=== PATIENT | female | born 1955 | race Caucasian/White ===

== ENCOUNTER 2020-03-19 18:52 | Emergency (ER) | payer MEDICARE, MEDICAID ==
[2020-03-19] MEDS ORDERED: Acetaminophen 500 MG Tab PO ONE (20:07)
--- NOTE | 2020-03-19 20:29 | EDM.PDOC ---
ED HPI GENERAL MEDICAL PROBLEM - General Chief Complaint: General Stated Complaint: COUG,CONGESTIVE,SOB Time Seen by Provider: 03/19/20 20:25 Source of Information: Reports: Patient History Limitations: Reports: No Limitations - History of Present Illness INITIAL COMMENTS - FREE TEXT/NARRATIVE: Laurel complains of COVID-like symptoms. They have been present for 1 week. They include high grade fever,body aches,cough and fatigue,. She has no SOB. She reports Borderline DM. Her daughter has similar symptoms bodyaching Pain Score (Numeric/FACES): 7 - Related Data Allergies Allergy/AdvReac Type Severity Reaction Status Date / Time ciprofloxacin [From Cipro] Allergy Nausea Verified 03/19/20 20:08 codeine Allergy Hives Verified 03/19/20 20:08 Sulfa (Sulfonamide Allergy Hives Verified 03/19/20 20:08 Antibiotics) Home Meds: Home Meds Amoxicillin/Potassium Clav [Augmentin 875-125 Tablet] 875 mg PO BID 01/21/16 [History] Gabapentin [Neurontin] 300 mg PO BEDTIME 01/21/16 [History] Mupirocin Oint [Bactroban Oint] 0 gm TOP BID 01/21/16 [History] metFORMIN HCl [Metformin ER Osmotic] 500 mg PO 1800 01/21/16 [History] Cholecalciferol (Vitamin D3) [Vitamin D3] 5,000 unit PO DAILY 01/22/16 [History] Cholestyramine (With Sugar) [Cholestyramine Powder] 4 gm PO BID 01/22/16 [History] Multivitamin Gummy 1 tab PO DAILY 01/22/16 [History] oxyCODONE 5 mg PO Q6H PRN #50 tablet 01/22/16 [Rx] oxyCODONE 10 mg PO Q6H PRN #0 tablet 01/22/16 [Rx] Past Medical History HEENT History: Reports: None Cardiovascular History: Reports: None Respiratory History: Reports: None Gastrointestinal History: Reports: Other (See Below) Other Gastrointestinal History: diverticulitis Genitourinary History: Reports: UTI, Recurrent, Other (See Below) Other Genitourinary History: dealing last 3 wks with UTI [employer]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: Musculoskeletal History: Reports: Fibromyalgia, Osteoarthritis, Osteoporosis Neurological History: Reports: None Psychiatric History: Reports: None Endocrine/Metabolic History: Reports: Diabetes, Type II, Other (See Below) Other Endocrine/Metabolic History: borderline diabetic Hematologic History: Reports: None Immunologic History: Reports: None Dermatologic History: Reports: Other (See Below) Other Dermatologic History: Daerer disease-- hereditary condition, pussy rash occas in arm pits - Past Surgical History HEENT Surgical History: Reports: Laser Surgery, Other (See Below) GI Surgical History: Reports: Other (See Below) Female Surgical History: Reports: Breast Reduction, Hysterectomy, Salpingo-Oo phorectomy, Other (See Below) Musculoskeletal Surgical History: Reports: Hip Replacement Social & Family History - Family History Family Medical History: No Pertinent Family History Cardiac: Reports: CAD (father) - Tobacco Use Tobacco Use Status *Q: Never Tobacco User - Caffeine Use Caffeine Use: Reports: None - Living Situation & Occupation Living situation: Reports: Occupation: Disabled ED ROS GENERAL - Review of Systems Review Of Systems: Comprehensive ROS is negative, except as noted in HPI. ED EXAM, GENERAL - Physical Exam Exam: See Below Exam Limited By: No Limitations General Appearance: Alert, No Apparent Distress Ears: Normal External Exam Respiratory/Chest: No Respiratory Distress, Lungs Clear Cardiovascular: Normal Peripheral Pulses Course - Vital Signs Last Recorded V/S: Last Vital Signs Temp 101.2 F H 03/19/20 18:52 Pulse 98 03/19/20 18:52 Resp 18 03/19/20 18:52 BP 104/61 03/19/20 18:52 Pulse Ox 93 L 03/19/20 18:52 - Orders/Labs/Meds Orders: Active Orders 24 hr Category Date Time Status Chest 1V Frontal [CR] Stat Exams 03/19/20 19:22 Taken CBC WITH AUTO DIFF [HEME] Stat Lab 03/19/20 19:47 Received Labs: Laboratory Tests 03/19/20 03/19/20 Range/Units 19:22 19:47 Sodium 136 (135-145) mmol/L Potassium 3.2 L (3.5-5.3) mmol/L Chloride 98 L (100-110) mmol/L Carbon Dioxide 29 (21-32) mmol/L BUN 10 (7-18) mg/dL Creatinine 0.8 (0.55-1.02) mg/dL Est Cr Clr Drug Dosing 67.38 mL/min Estimated GFR (MDRD) > 60 (>60) BUN/Creatinine Ratio 12.5 (9-20) Glucose 117 H (80-116) mg/dL Calcium 8.8 (8.6-10.2) mg/dL SARS-CoV-2 RNA (AUDRA) Positive H (NEGATIVE) Meds: Medications Discontinued Medications Generic Name Dose Route Start Last Admin Trade Name Isabel PRN Reason Stop Dose Admin Acetaminophen 1,000 mg 03/19/20 20:07 03/19/20 20:11 Tylenol Extra Strength PO 03/19/20 20:08 1,000 mg ONETIME ONE Administration Departure - Departure Time of Disposition: 20:26 Disposition: Home, Self-Care 01 Condition: Good Clinical Impression: Diabetes - Discharge Information Instructions: COVID-19 Frequently Asked Questions, COVID-19, COVID-19: How to Protect Yourself and Others - CDC, Prevent the Spread of COVID-19 if You Are Sick - [facility] [place] Referrals: PCP,None [Primary Care Provider] - Forms: ED Department Discharge Additional Instructions: you should quarantine yourself for 2 weeks or all symptoms is gone since the onset of the symptoms. you make Tylenol for fever and body aching. follow up with your primary care as needed Sepsis Event Note (ED) - Evaluation Sepsis Screening Result: No Definite Risk - Focused Exam Vital Signs: Vital Signs Temp Pulse Resp BP Pulse Ox 03/19/20 18:52 101.2 F H 98 18 104/61 93 L - Problem List & Annotations (1) Pneumonia due to COVID-19 virus SNOMED Code(s): 370240419545148721 Code(s): U07.1 - COVID-19; J12.89 - OTHER VIRAL PNEUMONIA Status: Acute Current Visit: Yes (2) Diabetes SNOMED Code(s): 70691775 Code(s): E11.9 - TYPE 2 DIABETES MELLITUS WITHOUT COMPLICATIONS Status: Acute Current Visit: Yes - Problem List Review Problem List Initiated/Reviewed/Updated: Yes - My Orders Last 24 Hours: My Active Orders 03/19/20 19:22 Chest 1V Frontal [CR] Stat 03/19/20 19:47 CBC WITH AUTO DIFF [HEME] Stat - Assessment/Plan Last 24 Hours: My Active Orders 03/19/20 19:22 Chest 1V Frontal [CR] Stat 03/19/20 19:47 CBC WITH AUTO DIFF [HEME] Stat Plan: She is not dyspneic,and her O2 is listed as 96% on RA. CXR was suggestive of COVID. I think it is reasonable to dicharge home on Rik AC.
[2020-03-19 22:21] VITALS: BP 125/65; PULSE 97
== END 2020-03-19 21:00 | disposition home or self-care (01) ==
LOC: FB.ED 18:52
DX: U07.1 COVID-19 (principal); E11.9 Type 2 diabetes mellitus without complications; Z88.1 Allergy status to other antibiotic agents; Z88.5 Allergy status to narcotic agent; Z88.2 Allergy status to sulfonamides; Z79.84 Long term (current) use of oral hypoglycemic drugs; Z79.899 Other long term (current) drug therapy
CPT/HCPCS: 36415; 71045; 80048; 85025; 99283; A9270; U0002

== ENCOUNTER 2021-01-10 08:52 | Emergency (ER) | payer MEDICAID, MEDICARE ==
[2021-01-10 09:14] VITALS: PULSE 74
--- NOTE | 2021-01-10 09:28 | EDM.PDOC ---
ED HPI GENERAL MEDICAL PROBLEM - General Stated Complaint: drainage from incision Time Seen by Provider: 01/10/21 09:23 Source of Information: Reports: Patient History Limitations: Reports: No Limitations - History of Present Illness INITIAL COMMENTS - FREE TEXT/NARRATIVE: Laurel has a wound that is draining. This wound was explored on 01/05 at [facility],to make sure there is no fistula. At that time,she was also given Cephalexin for redness. The redness has since improved,but this morning it started draining thin,red fluid in abundance. Left Lower Abdomen Pain Score (Numeric/FACES): 8 - Related Data Allergies Allergy/AdvReac Type Severity Reaction Status Date / Time ciprofloxacin [From Cipro] Allergy Nausea Verified 01/10/21 09:11 codeine Allergy Hives Verified 01/10/21 09:11 Sulfa (Sulfonamide Allergy Hives Verified 01/10/21 09:11 Antibiotics) Home Meds: Home Meds Amoxicillin/Potassium Clav [Augmentin 875-125 Tablet] 875 mg PO BID 01/21/16 [History] Gabapentin [Neurontin] 300 mg PO BEDTIME 01/21/16 [History] Mupirocin Oint [Bactroban Oint] 0 gm TOP BID 01/21/16 [History] metFORMIN HCl [Metformin ER Osmotic] 500 mg PO 1800 01/21/16 [History] Cholecalciferol (Vitamin D3) [Vitamin D3] 5,000 unit PO DAILY 01/22/16 [History] Cholestyramine (With Sugar) [Cholestyramine Powder] 4 gm PO BID 01/22/16 [History] Multivitamin Gummy 1 tab PO DAILY 01/22/16 [History] oxyCODONE 5 mg PO Q6H PRN #50 tablet 01/22/16 [Rx] oxyCODONE 10 mg PO Q6H PRN #0 tablet 01/22/16 [Rx] Past Medical History HEENT History: Reports: None Cardiovascular History: Reports: None Respiratory History: Reports: None Gastrointestinal History: Reports: Other (See Below) Other Gastrointestinal History: diverticulitis Genitourinary History: Reports: UTI, Recurrent, Other (See Below) Other Genitourinary History: dealing last 3 wks with 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: Musculoskeletal History: Reports: Fibromyalgia, Osteoarthritis, Osteoporosis Neurological History: Reports: None Psychiatric History: Reports: None Endocrine/Metabolic History: Reports: Diabetes, Type II, Other (See Below) Other Endocrine/Metabolic History: borderline diabetic Hematologic History: Reports: None Immunologic History: Reports: None Dermatologic History: Reports: Other (See Below) Other Dermatologic History: Daerer disease-- hereditary condition, pussy rash occas in arm pits - Past Surgical History HEENT Surgical History: Reports: Laser Surgery, Other (See Below) GI Surgical History: Reports: Other (See Below) Female Surgical History: Reports: Breast Reduction, Hysterectomy, Salpingo- Oophorectomy, Other (See Below) Musculoskeletal Surgical History: Reports: Hip Replacement Social & Family History - Family History Family Medical History: No Pertinent Family History Cardiac: Reports: CAD (father) - Caffeine Use Caffeine Use: Reports: None - Living Situation & Occupation Living situation: Reports: Occupation: Disabled ED ROS GENERAL - Review of Systems Review Of Systems: Comprehensive ROS is negative, except as noted in HPI. ED EXAM, SKIN/RASH Exam: See Below Exam Limited By: No Limitations General Appearance: Alert, WD/WN Nose: Normal Inspection Respiratory/Chest: No Respiratory Distress, Lungs Clear Cardiovascular: Normal Peripheral Pulses GI/Abdominal: Normal Bowel Sounds, Soft, Other (Wound is clean,but serosanguinous fluid on expressing it.). No: Distended Back Exam: Normal Inspection Course - Vital Signs Last Recorded V/S: Last Vital Signs Temp 96.4 F L 01/10/21 08:52 Pulse 74 01/10/21 08:52 Resp 18 01/10/21 08:52 BP 125/74 01/10/21 08:52 Pulse Ox 99 01/10/21 08:52 Departure - Departure Time of Disposition: 09:28 Disposition: Home, Self-Care 01 Condition: Good Clinical Impression: Encounter for dressing of wound - Discharge Information Sepsis Event Note (ED) - Focused Exam Vital Signs: Vital Signs Temp Pulse Resp BP Pulse Ox 01/10/21 08:52 96.4 F L 74 18 125/74 99 - Problem List & Annotations (1) Encounter for dressing of wound SNOMED Code(s): 059679040 Code(s): Z48.00 - ENCOUNTER FOR CHANGE OR REMOVAL OF NONSURG WOUND DRESSING Status: Acute - Problem List Review Problem List Initiated/Reviewed/Updated: Yes - Assessment/Plan Plan: Laurel was reassured. Advised to continue with Cephalexin. Change dressing with an ABD. Follow up next week.
[2021-01-10 11:10] VITALS: BP 132/79
== END 2021-01-10 09:50 | disposition home or self-care (01) ==
LOC: FB.ED 08:52
DX: Z48.00 Encounter for change or removal of nonsurgical wound dressing (principal); M19.90 Unspecified osteoarthritis, unspecified site; E11.9 Type 2 diabetes mellitus without complications; Z88.1 Allergy status to other antibiotic agents; Z88.5 Allergy status to narcotic agent; Z88.2 Allergy status to sulfonamides; Z79.84 Long term (current) use of oral hypoglycemic drugs; Z79.899 Other long term (current) drug therapy
CPT/HCPCS: 99282

== ENCOUNTER 2023-11-28 20:45 | Emergency (ER) | payer MEDICAID, MEDICARE ==
[2023-11-28] MEDS ORDERED: Acetaminophen/oxyCODONE 325-5 MG Tab PO ONE (20:46)
[2023-11-28] MEDS: Acetaminophen 500 MG Tab PO ONE (21:09)
[2023-11-28] MEDS: traMADol 50 MG Tab PO STA (21:10)
[2023-11-29 00:23] VITALS: BP 116/60; PULSE 62
== END 2023-11-28 23:45 | disposition home or self-care (01) ==
LOC: FB.ED 20:45
DX: S02.2XXA Fracture of nasal bones, initial encounter for closed fracture (principal); S73.102A Unspecified sprain of left hip, initial encounter; S80.02XA Contusion of left knee, initial encounter; E11.9 Type 2 diabetes mellitus without complications; Z90.710 Acquired absence of both cervix and uterus; Z79.84 Long term (current) use of oral hypoglycemic drugs; Z79.899 Other long term (current) drug therapy; Z79.2 Long term (current) use of antibiotics; Z88.1 Allergy status to other antibiotic agents; Z88.5 Allergy status to narcotic agent; Z88.2 Allergy status to sulfonamides; W01.0XXA Fall on same level from slipping, tripping and stumbling without subsequent striking against object, initial encounter
CPT/HCPCS: 70450; 70486; 73502-LT; 73562-LT; 99284; A9270-GY